=== PATIENT | female | born 1950 | race Asian ===

== ENCOUNTER 2020-01-03 12:54 | Observation (INO) | payer BC, MEDICARE, OTHER, SELFPAY ==
[2020-01-03 13:06] VITALS: BP 183/93; PULSE 99; RESP 18; TEMP 36.4; O2SAT 97; BMI 31.2
[2020-01-03 13:26] LABS: Add Manual Diff / Slide Review NO; Basophils Absolute Auto 100 /uL (0-100); Basophils Percent Auto 0.8 % (0-2); Eosinophils Absolute Auto 100 /uL (0-450); Eosinophils Percent Auto 0.8 % (2-4); Hematocrit 42.4 % (36-46); Hemoglobin 14.4 g/dL (12.0-16.0); Lymphocytes Absolute Auto 1600 /uL (1100-4500); Lymphocytes Percent Auto 12.4 % (25-40); Mean Corpuscular HGB Conc 33.9 % (30-36); Mean Corpuscular Hemoglobin 28.4 PG (26-34); Mean Corpuscular Volume 83.8 fL (80-100); Monocytes Absolute Auto 400 /uL (0-900); Neutrophils Absolute Auto 11000 /uL (1500-7000); Platelet Count 300 X10^3/uL (150-400); Red Blood Cell Count 5.06 X10^6/uL (4.0-5.2); Red Cell Distribution Width 13.8 % (11.6-14.8); White Blood Cell Count 13.3 X10^3/uL (4.5-11.0)
--- NOTE | 2020-01-03 13:31 | DI.CT.S_ITS ---
PROCEDURE: CT ABDOMEN PELVIS W CON INDICATIONS: R upper and lower Q pain w/vomiting, hx uterine mass TECHNIQUE: After the administration of intravenous contrast, 5 mm thick sections acquired from the diaphragm to the symphysis. 5 mm coronal and sagittal reformats were acquired. For radiation dose reduction, the following was used: automated exposure control, adjustment of mA and/or kV according to patient size. COMPARISON: None. FINDINGS: Image quality: Excellent. ABDOMEN: Lung bases: Lung bases are clear. Heart size is normal. Solid organs: Hepatic steatosis. Gallbladder negative. There is a 2 mm calculus which may be located within the gallbladder neck or proximal cystic duct however no definite other CT evidence of acute cholecystitis. This is seen on image 27/2 Biliary system is non dilated. Pancreas enhances normally. Spleen is normal in size and enhancement. No adrenal nodules. Kidneys demonstrate normal size and enhancement, without hydronephrosis Peritoneum and bowel: Dilated small bowel loops are noted, mostly within the left abdomen, and there are scattered air-fluid levels. An exact transition point is unclear. There are some nondistended loops of jejunum. The colon is decompressed. No free fluid or air. Nodes and vessels: No retroperitoneal or mesenteric adenopathy by size criteria. Aorta and inferior vena cava are normal in size. Miscellaneous: No ventral hernias. PELVIS: Genitourinary: The bladder is largely collapsed. Uterine may be least partially present although nonspecific and recommend correlation with surgical history Miscellaneous: No inguinal hernias or adenopathy. Bones: No suspicious bony lesions. No vertebral body compression fractures. IMPRESSION: Left-sided distended small bowel loops, with scattered air-fluid levels. This raises the possibility of infectious or inflammatory enteritis with adynamic ileus, versus developing small bowel obstruction. An exact transition point is not well seen. Please correlate clinically and if needed continued surveillance with abdominal series radiographs could be performed. Hepatic steatosis 2 mm calculus seen within the gallbladder neck however no other CT evidence of acute cholecystitis Dictated by: Bryant Conn M.D. on 01/03/2020 at 14:33 Approved by: Bryant Conn M.D. on 01/03/2020 at 14:47
[2020-01-03] MEDS: ONDANSETRON 4 MG/2 ML INJ IV (13:33)
[2020-01-03] MEDS: SODIUM CHLORIDE 0.9% 1,000 ML 1000 ML IV (13:33)
[2020-01-03 13:34] LABS: Prothrombin Time 12.1 SECONDS (10.1-12.7)
--- NOTE | 2020-01-03 13:35 | ED.ABDPAIN ---
HPI - Abdominal Pain <ASHLIE Tripathi - Last Filed: 01/03/20 17:14> General Chief Complaint: Abdominal Pain Stated Complaint: stomach pain, throwing up Time Seen by Provider: 01/03/20 13:14 Source: patient Mode of arrival: Ambulatory Limitations: no limitations History of Present Illness HPI narrative: 69yo female with history of AK and 2 stents, and a hysterectomy due to mass in uterus, presents to the emergency department for left upper and lower quadrant abdominal pain with dry heaving for the past 24 hours. She states the pain is cramping and dull aching. She has been dry heaving without a lot of vomiting. Patient reports feeling nauseated, has not eaten or drinking much over the past 24 hours. Patient denies any diarrhea, constipation, blood in stools, fevers, chills, chest pain, shortness of breath, dizziness, or other concerns. Patient denies any history of kidney stones or diverticulitis. Related Data Home Medications Medication Instructions Recorded Confirmed ezetimibe [Zetia] 10 mg PO DAILY 01/03/20 01/03/20 lisinopril 10 mg PO DAILY 01/03/20 01/03/20 metoprolol tartrate 50 mg PO DAILY 01/03/20 01/03/20 rosuvastatin [Crestor] 40 mg PO DAILY 01/03/20 01/03/20 Allergies Allergy/AdvReac Type Severity Reaction Status Date / Time No Known Drug Allergies Allergy Verified 01/03/20 13:06 Review of Systems <ASHLIE Tripathi - Last Filed: 01/03/20 17:14> Review of Systems Narrative: REVIEW OF SYSTEMS: GENERAL: Denies fever, chills, malaise, or wt. loss. HENT: No head trauma, sore throat, or dysphagia. EYES: No loss of vision, double vision, eye pain, or irritation. CARDIOVASCULAR: No chest pain, palpitations, or orthopnea. RESPIRATORY: No shortness of breath or cough. GASTROINTESTINAL: Complains of abdominal pain and dry heaving, see HPI GENITOURINARY: No flank pain, hesitancy, frequency, or dysuria. MUSCULOSKELETAL: No pain, weakness, or trauma. INTEGUMENTARY: No rash, lesions, or pruritus. NEURO: No headaches. PSYCH: No behavior or mood changes. Patient History <ASHLIE Tripathi - Last Filed: 01/03/20 17:14> Medical History Coronary artery disease (Acute) Dizziness (Acute) Elevated cholesterol (Acute) History of myocardial infarction in adulthood (Acute) History of smoking (Acute) Hypertension (Acute) Tinnitus (Acute) Surgical History History of hysterectomy (Acute) Hx of heart artery stent (Acute) Family History Brother Heart disease Social History household members: spouse Smoking Status: Former smoker alcohol intake: current Smoking Status: Never smoker alcohol intake frequency: holidays/special occasions only Substance Use Type: does not use Exam <ASHLIE Tripathi - Last Filed: 01/03/20 17:14> Initial Vital Signs Initial Vital Signs: Vital Signs Temperature 97.6 F 01/03/20 13:06 Pulse Rate 99 H 01/03/20 13:06 Respiratory Rate 18 01/03/20 13:06 Blood Pressure 183/93 H 01/03/20 13:06 Pulse Oximetry 97 01/03/20 13:06 PHYSICAL EXAMINATION: GENERAL: Well groomed, alert, and cooperative. Answers questions promptly and appropriately. Vital signs noted. HENT: Normocephalic, atraumatic. Hearing intact. Oral mucosa is pink and moist. EYES: Conjunctiva pink, sclera white, no periorbital swelling. CARDIOVASCULAR: S1 and S2 sounds normal. Regular rate and rhythm, no murmurs, clicks, or bruits. No pedal edema. RESPIRATORY: Normal respiratory rate, trachea midline, airway patent. No stridor, nasal flaring or accessory muscle use. Lungs are clear in all warner without wheeze, rhonchi, or crackles. GASTROINTESTINAL: Bowel sounds normoactive. Abdomen is soft and right upper and right lower quadrant tenderness. No organomegaly, no palpable masses. GENITALURINARY: No flank tenderness. MUSCULOSKELETAL: Normal gait and coordination. Equal tone and mass bilaterally. EXTREMITIES: CMS intact, no pedal edema. SKIN: Warm, dry, soft, appropriate color for ethnicity. No lesions, rashes, or wounds to visualized areas. NEURO: Alert and Oriented X 3. Good coordination. No ataxia, or sensory deficits, or cognitive issues. PSYCH: Appropriate affect and mood. <Jordy Jefferson DO - Last Filed: 01/03/20 17:31> Initial Vital Signs Initial Vital Signs: Vital Signs Temperature 97.6 F 01/03/20 13:06 Pulse Rate 99 H 01/03/20 13:06 Respiratory Rate 18 01/03/20 13:06 Blood Pressure 183/93 H 01/03/20 13:06 Pulse Oximetry 97 01/03/20 13:06 Course <Ale EstradaASHLIE - Last Filed: 01/03/20 17:14> Course Course Narrative: Patient given fluids and Zofran. 1503: Spoke with Dr. Vaughn regarding CT results, will review images. 1520: Dr. Vaughn at bedside to assess patient, accepts admission to observation. Orders Ordered: ED Orders 01/03/20 13:12 EKG-12 Lead Stat 01/03/20 13:15 Complete Blood Count AUTO DIFF Stat Comprehensive Metabolic Panel Stat Lipase Stat Partial Thromboplastin Time Stat Prothrombin Time INR Stat Troponin & CK Cardiac Panel Stat 01/03/20 13:31 CT abdomen pelvis w con Stat Ezetimibe (Zetia) 10 mg PO BEDTIME [facility] Enoxaparin Sodium (Lovenox) 40 mg SUBCUT DAILY [facility] Dextrose/Sodium Chloride (Dextrose 5%-0.45% Ns) 1,000 mls @ 125 mls/hr IV CONT SHORTY Last Admin: 01/03/20 16:50 Dose: 125 mls/hr Documented by: VILMA Ketorolac Tromethamine (Toradol) 30 mg IV Q8HR PRN PRN Reason: Pain, Moderate (4-6) Stop: 01/08/20 16:00 Last Admin: 01/03/20 16:50 Dose: 30 mg Documented by: VILMA Lisinopril (Zestril) 10 mg PO DAILY [facility] Metoprolol Tartrate (Lopressor) 50 mg PO DAILY [facility] Naloxone HCl (Narcan) 0.2 mg IV Q2MIN PRN PRN Reason: Opiate Reversal Ondansetron HCl (Zofran) 4 mg IV Q4HR PRN PRN Reason: Nausea And Vomiting Rosuvastatin Calcium (Crestor) 40 mg PO BEDTIME [facility] Discontinued Medications Sodium Chloride (Normal Saline 0.9%) 1,000 mls @ 1,000 mls/hr IV BOLUS ONE Stop: 01/03/20 14:31 Last Infusion: 01/03/20 15:30 Dose: 0 mls/hr Documented by: Admin: 01/03/20 13:33 Dose: 1,000 mls/hr Documented by: THANH Lactated Ringer's (Lactated Ringers) 1,000 mls @ 125 mls/hr IV CONT SHORTY Last Admin: 01/03/20 16:01 Dose: 125 mls/hr Documented by: ANTONIETA Ondansetron HCl (Zofran) 4 mg IV NOW ONE Stop: 01/03/20 13:13 Last Admin: 01/03/20 13:33 Dose: 4 mg Documented by: THANH Consultations Consultation #1: Patient staffed with Dr. Jefferson, discussed symptoms, tests, test results, and plan of care. Vital Signs Vital signs: Vital Signs - 8 hr 01/03/20 13:06 Temperature 97.6 F Pulse Rate 99 H Respiratory Rate 18 Blood Pressure 183/93 H Pulse Oximetry 97 <Jordy Jefferson, - Last Filed: 01/03/20 17:31> Orders Ordered: ED Orders 01/03/20 13:12 EKG-12 Lead Stat 01/03/20 13:15 Complete Blood Count AUTO DIFF Stat Comprehensive Metabolic Panel Stat Lipase Stat Partial Thromboplastin Time Stat Prothrombin Time INR Stat Troponin & CK Cardiac Panel Stat 01/03/20 13:31 CT abdomen pelvis w con Stat Ezetimibe (Zetia) 10 mg PO BEDTIME [facility] Enoxaparin Sodium (Lovenox) 40 mg SUBCUT DAILY [facility] Dextrose/Sodium Chloride (Dextrose 5%-0.45% Ns) 1,000 mls @ 125 mls/hr IV CONT SHORTY Last Admin: 01/03/20 16:50 Dose: 125 mls/hr Documented by: VILMA Ketorolac Tromethamine (Toradol) 30 mg IV Q8HR PRN PRN Reason: Pain, Moderate (4-6) Stop: 01/08/20 16:00 Last Admin: 01/03/20 16:50 Dose: 30 mg Documented by: VILMA Lisinopril (Zestril) 10 mg PO DAILY [facility] Metoprolol Tartrate (Lopressor) 50 mg PO DAILY [facility] Naloxone HCl (Narcan) 0.2 mg IV Q2MIN PRN PRN Reason: Opiate Reversal Ondansetron HCl (Zofran) 4 mg IV Q4HR PRN PRN Reason: Nausea And Vomiting Rosuvastatin Calcium (Crestor) 40 mg PO BEDTIME [facility] Discontinued Medications Sodium Chloride (Normal Saline 0.9%) 1,000 mls @ 1,000 mls/hr IV BOLUS ONE Stop: 01/03/20 14:31 Last Infusion: 01/03/20 15:30 Dose: 0 mls/hr Documented by: Admin: 01/03/20 13:33 Dose: 1,000 mls/hr Documented by: THANH Lactated Ringer's (Lactated Ringers) 1,000 mls @ 125 mls/hr IV CONT SHORTY Last Admin: 01/03/20 16:01 Dose: 125 mls/hr Documented by: ANTONIETA Ondansetron HCl (Zofran) 4 mg IV NOW ONE Stop: 01/03/20 13:13 Last Admin: 01/03/20 13:33 Dose: 4 mg Documented by: THANH Vital Signs Vital signs: Vital Signs - 8 hr 01/03/20 13:06 Temperature 97.6 F Pulse Rate 99 H Respiratory Rate 18 Blood Pressure 183/93 H Pulse Oximetry 97 MDM - Abdominal Pain <ASHLIE Tripathi - Last Filed: 01/03/20 17:14> Medical Records Attestation: I reviewed the patient's medical records. Lab Data Attestation: I reviewed the patient's lab results. Result diagrams: 01/03/20 13:15 01/03/20 13:15 Labs: Lab Results 01/03/20 01/03/20 01/03/20 Range/Units 13:15 13:15 13:15 WBC 13.3 H (4.5-11.0) X10^3/uL RBC 5.06 (4.0-5.2) X10^6/uL Hgb 14.4 (12.0-16.0) g/dL Hct 42.4 (36-46) % MCV 83.8 (80-100) fL MCH 28.4 (26-34) PG MCHC 33.9 (30-36) % RDW 13.8 (11.6-14.8) % Plt Count 300 (150-400) X10^3/uL Neut % (Auto) 83.0 H (50-75) % Lymph % (Auto) 12.4 L (25-40) % Sebastian % (Auto) 3.0 (3-14) % Eos % (Auto) 0.8 L (2-4) % Baso % (Auto) 0.8 (0-2) % Neut # (Auto) 54103 H (0670-9154) /uL Lymph # (Auto) 1600 (1363-7010) /uL Sebastian # (Auto) 400 (0-900) /uL Eos # (Auto) 100 (0-450) /uL Baso # (Auto) 100 (0-100) /uL PT 12.1 (10.1-12.7) SECONDS INR 1.0 (0.9-1.3) APTT 36 (26.4-36.2) SECONDS Sodium 136 L (137-145) mmol/L Potassium 4.1 (3.4-5.1) mmol/L Chloride 101 (98-107) mmol/L Carbon Dioxide 24 (22-32) mmol/L BUN 17 (7-17) mg/dL Creatinine 0.55 (0.52-1.04) mg/dL Estimated GFR > 60.0 (>60) mL/min BUN/Creatinine Ratio 30.9 H (6-22) Glucose 178 H (80-110) mg/dL Calcium 9.9 (8.4-10.2) mg/dL Total Bilirubin 0.5 (0.2-1.3) mg/dL AST 28 (14-36) IU/L ALT 22 (<35) IU/L Alkaline Phosphatase 85 (38-126) U/L Total Creatine Kinase (30-135) U/L CK-MB (CK-2) CK-MB (CK-2) Rel Index Troponin I (0.01-0.034) ng/mL Total Protein 8.6 H (6.3-8.2) g/dL Albumin 5.0 (3.5-5.0) g/dL Globulin 3.6 (1.7-4.1) g/dL Albumin/Globulin Ratio 1.4 (1.0-2.8) Lipase 37 (23-300) U/L /16/ Range/Units 13:15 WBC (4.5-11.0) X10^3/uL RBC (4.0-5.2) X10^6/uL Hgb (12.0-16.0) g/dL Hct (36-46) % MCV (80-100) fL MCH (26-34) PG MCHC (30-36) % RDW (11.6-14.8) % Plt Count (150-400) X10^3/uL Neut % (Auto) (50-75) % Lymph % (Auto) (25-40) % Sebastian % (Auto) (3-14) % Eos % (Auto) (2-4) % Baso % (Auto) (0-2) % Neut # (Auto) (1040-3349) /uL Lymph # (Auto) (7121-5400) /uL Sebastian # (Auto) (0-900) /uL Eos # (Auto) (0-450) /uL Baso # (Auto) (0-100) /uL PT (10.1-12.7) SECONDS INR (0.9-1.3) APTT (26.4-36.2) SECONDS Sodium (137-145) mmol/L Potassium (3.4-5.1) mmol/L Chloride (98-107) mmol/L Carbon Dioxide (22-32) mmol/L BUN (7-17) mg/dL Creatinine (0.52-1.04) mg/dL Estimated GFR (>60) mL/min BUN/Creatinine Ratio (6-22) Glucose (80-110) mg/dL Calcium (8.4-10.2) mg/dL Total Bilirubin (0.2-1.3) mg/dL AST (14-36) IU/L ALT (<35) IU/L Alkaline Phosphatase (38-126) U/L Total Creatine Kinase 76 (30-135) U/L CK-MB (CK-2) TNP CK-MB (CK-2) Rel Index TNP Troponin I < 0.012 (0.01-0.034) ng/mL Total Protein (6.3-8.2) g/dL Albumin (3.5-5.0) g/dL Globulin (1.7-4.1) g/dL Albumin/Globulin Ratio (1.0-2.8) Lipase (23-300) U/L Point of care testing: Urine Dip Bedside Urine Glucose Negative Bedside Urine Bilirubin - Negative Bedside Urine Ketone ++ 40 Urine Specific [place] 1.030 Bedside Urine Occult Blood - Negative Bedside Urine pH 6.0 Bedside Urine Protein - Negative Bedside Urine Urobilinogen - Negative Bedside Urine Nitrite - Negative Bedside Urine Leukocytes - Negative Esterase Imaging Data CT scan - abdomen/pelvis: Radiologist's Impression: [address] [address] [address] Scan Report Signed Patient: Juan Cardenas IMR#: [id number] : 3Acct:[id number] Age/Sex: 69 / FDate of Service: 01/03/20 Loc: ED Accession Number: [id number] Procedure: CT abdomen pelvis w con Ordering Provider: Ale Estrada PROCEDURE: CT ABDOMEN PELVIS W CON INDICATIONS: R upper and lower Q pain w/vomiting, hx uterine mass TECHNIQUE: After the administration of intravenous contrast, 5 mm thick sections acquired from the diaphragm to the symphysis. 5 mm coronal and sagittal reformats were acquired. For radiation dose reduction, the following was used: automated exposure control, adjustment of mA and/or kV according to patient size. COMPARISON: None. FINDINGS: Image quality: Excellent. ABDOMEN: Lung bases: Lung bases are clear. Heart size is normal. Solid organs: Hepatic steatosis. Gallbladder negative. There is a 2 mm calculus which may be located within the gallbladder neck or proximal cystic duct however no definite other CT evidence of acute cholecystitis. This is seen on image 27/2 Biliary system is non dilated. Pancreas enhances normally. Spleen is normal in size and enhancement. No adrenal nodules. Kidneys demonstrate normal size and enhancement, without hydronephrosis Peritoneum and bowel: Dilated small bowel loops are noted, mostly within the left abdomen, and there are scattered air-fluid levels. An exact transition point is unclear. There are some nondistended loops of jejunum. The colon is decompressed. No free fluid or air. Nodes and vessels: No retroperitoneal or mesenteric adenopathy by size criteria. Aorta and inferior vena cava are normal in size. Miscellaneous: No ventral hernias. PELVIS: Genitourinary: The bladder is largely collapsed. Uterine may be least partially present although nonspecific and recommend correlation with surgical history Miscellaneous: No inguinal hernias or adenopathy. Bones: No suspicious bony lesions. No vertebral body compression fractures. IMPRESSION: Left-sided distended small bowel loops, with scattered air-fluid levels. This raises the possibility of infectious or inflammatory enteritis with adynamic ileus, versus developing small bowel obstruction. An exact transition point is not well seen. Please correlate clinically and if needed continued surveillance with abdominal series radiographs could be performed. Hepatic steatosis 2 mm calculus seen within the gallbladder neck however no other CT evidence of acute cholecystitis Dictated by: Bryant Conn M.D. on 01/03/2020 at 14:33 Approved by: Bryant Conn M.D. on 01/03/2020 at 14:47 ECG Data Interpretation: Sinus rhythm, rate 95, OK interval 192, QTC 475. No ST elevation or ST depression. No ectopy. T-wave inversion noted to lead 3. No prior EKGs for comparison. EKG also viewed by Dr. Jefferson per vanesa. MDM Narrative Medical decision making narrative: 69-year-old female presents emergency department for dry heaving and left quadrant abdominal pain for the past 24 hours. Differential includes enteritis versus infectious enteritis versus small-bowel obstruction given CT results, tenderness, and symptoms. Patient does have an elevated white blood cell count of 13.3. Less concern for sepsis due to lack of fever, tachycardia, and lactic acid is within normal limits. Patient is hemodynamically stable and awake alert. Additionally, CT shows stone within gallbladder neck without signs of cholecystitis, less likely because of pain due to lack of right upper quadrant pain. Surgery was consulted who evaluated patient and admitted for observation. Patient agreed to plan of care verbalized understanding. <Jordy Jefferson, DO - Last Filed: 01/03/20 17:31> Lab Data Labs: Lab Results 01/03/20 01/03/20 01/03/20 Range/Units 13:15 13:15 13:15 WBC 13.3 H (4.5-11.0) X10^3/uL RBC 5.06 (4.0-5.2) X10^6/uL Hgb 14.4 (12.0-16.0) g/dL Hct 42.4 (36-46) % MCV 83.8 (80-100) fL MCH 28.4 (26-34) PG MCHC 33.9 (30-36) % RDW 13.8 (11.6-14.8) % Plt Count 300 (150-400) X10^3/uL Neut % (Auto) 83.0 H (50-75) % Lymph % (Auto) 12.4 L (25-40) % Sebastian % (Auto) 3.0 (3-14) % Eos % (Auto) 0.8 L (2-4) % Baso % (Auto) 0.8 (0-2) % Neut # (Auto) 89367 H (0844-1014) /uL Lymph # (Auto) 1600 (5893-4066) /uL Sebastian # (Auto) 400 (0-900) /uL Eos # (Auto) 100 (0-450) /uL Baso # (Auto) 100 (0-100) /uL PT 12.1 (10.1-12.7) SECONDS INR 1.0 (0.9-1.3) APTT 36 (26.4-36.2) SECONDS Sodium 136 L (137-145) mmol/L Potassium 4.1 (3.4-5.1) mmol/L Chloride 101 (98-107) mmol/L Carbon Dioxide 24 (22-32) mmol/L BUN 17 (7-17) mg/dL Creatinine 0.55 (0.52-1.04) mg/dL Estimated GFR > 60.0 (>60) mL/min BUN/Creatinine Ratio 30.9 H (6-22) Glucose 178 H (80-110) mg/dL Calcium 9.9 (8.4-10.2) mg/dL Total Bilirubin 0.5 (0.2-1.3) mg/dL AST 28 (14-36) IU/L ALT 22 (<35) IU/L Alkaline Phosphatase 85 (38-126) U/L Total Creatine Kinase (30-135) U/L CK-MB (CK-2) CK-MB (CK-2) Rel Index Troponin I (0.01-0.034) ng/mL Total Protein 8.6 H (6.3-8.2) g/dL Albumin 5.0 (3.5-5.0) g/dL Globulin 3.6 (1.7-4.1) g/dL Albumin/Globulin Ratio 1.4 (1.0-2.8) Lipase 37 (23-300) U/L /16/ Range/Units 13:15 WBC (4.5-11.0) X10^3/uL RBC (4.0-5.2) X10^6/uL Hgb (12.0-16.0) g/dL Hct (36-46) % MCV (80-100) fL MCH (26-34) PG MCHC (30-36) % RDW (11.6-14.8) % Plt Count (150-400) X10^3/uL Neut % (Auto) (50-75) % Lymph % (Auto) (25-40) % Sebastian % (Auto) (3-14) % Eos % (Auto) (2-4) % Baso % (Auto) (0-2) % Neut # (Auto) (8722-7504) /uL Lymph # (Auto) (4207-4187) /uL Sebastian # (Auto) (0-900) /uL Eos # (Auto) (0-450) /uL Baso # (Auto) (0-100) /uL PT (10.1-12.7) SECONDS INR (0.9-1.3) APTT (26.4-36.2) SECONDS Sodium (137-145) mmol/L Potassium (3.4-5.1) mmol/L Chloride (98-107) mmol/L Carbon Dioxide (22-32) mmol/L BUN (7-17) mg/dL Creatinine (0.52-1.04) mg/dL Estimated GFR (>60) mL/min BUN/Creatinine Ratio (6-22) Glucose (80-110) mg/dL Calcium (8.4-10.2) mg/dL Total Bilirubin (0.2-1.3) mg/dL AST (14-36) IU/L ALT (<35) IU/L Alkaline Phosphatase (38-126) U/L Total Creatine Kinase 76 (30-135) U/L CK-MB (CK-2) TNP CK-MB (CK-2) Rel Index TNP Troponin I < 0.012 (0.01-0.034) ng/mL Total Protein (6.3-8.2) g/dL Albumin (3.5-5.0) g/dL Globulin (1.7-4.1) g/dL Albumin/Globulin Ratio (1.0-2.8) Lipase (23-300) U/L Point of care testing: Urine Dip Bedside Urine Glucose Negative Bedside Urine Bilirubin - Negative Bedside Urine Ketone ++ 40 Urine Specific [place] 1.030 Bedside Urine Occult Blood - Negative Bedside Urine pH 6.0 Bedside Urine Protein - Negative Bedside Urine Urobilinogen - Negative Bedside Urine Nitrite - Negative Bedside Urine Leukocytes - Negative Esterase Discharge Plan Departure Patient Disposition: Admitted as Observation Clinical Impression: Dilated bowel Abdominal pain Qualifiers: Abdominal location: left lower quadrant Qualified Code(s): R10.32 - Left lower quadrant pain Cholelithiasis Qualifiers: Cholelithiasis location: gallbladder Cholecystitis presence: without cholecystitis Biliary obstruction: without biliary obstruction Qualified Code(s): K80.20 - Calculus of gallbladder without cholecystitis without obstruction Discharge Date/Time: 01/03/20 16:30 Referrals: Antonio Crawley MD [Primary Care Provider] - Admit Date/Time: 01/03/20 15:29 Admit Provider: Zelalem Vaughn <Jordy Jefferson DO - Last Filed: 01/03/20 17:31> Cosign ED Attending Cosignature Attestation: Dr Jefferson Co-Sign Statement: I was available for consultation during this patient's emergency department visit. This chart is signed by myself for administrative purposes only. I did not have direct contact with this patient during this visit. They were seen independently by the APC.
[2020-01-03 13:36] LABS: PTT Partial Thromboplastin Tim 36 SECONDS (26.4-36.2)
[2020-01-03 13:38] LABS: Alanine Aminotransferase 22 IU/L (<35); Albumin Globulin Ratio 1.4 (1.0-2.8); Alkaline Phosphatase 85 U/L (38-126); Aspartate Aminotransferase 28 IU/L (14-36); BUN Creatinine Ratio 30.9 (6-22); Bilirubin Total 0.5 mg/dL (0.2-1.3); Blood Urea Nitrogen 17 mg/dL (7-17); Calcium 9.9 mg/dL (8.4-10.2); Carbon Dioxide 24 mmol/L (22-32); Chloride 101 mmol/L (98-107); Estimated Glomerular Filt Rate > 60.0 mL/min (>60); Globulin 3.6 g/dL (1.7-4.1); Glucose 178 mg/dL (80-110); HEMOLYSIS < 15 (0-50); Lipase 37 U/L (23-300); Potassium 4.1 mmol/L (3.4-5.1); Sodium 136 mmol/L (137-145); Total Protein 8.6 g/dL (6.3-8.2)
[2020-01-03 13:50] LABS: Creatine Kinase 76 U/L (30-135)
[2020-01-03 14:03] LABS: Troponin I < 0.012 ng/mL (0.01-0.034)
--- NOTE | 2020-01-03 15:32 | P.HP_ITS ---
History of Present Illness History of Present Illness Date Patient Seen: 01/03/20 Time Patient Seen: 15:32 Chief complaint: stomach pain, throwing up Narrative: The patient is a woman who developed pain across her upper abdomen yesterday afternoon. It was accompanied by persistent nausea and vomiting all night long. She had a normal bowel movement this morning. She has had problems with eating and with her abdomen in the past but nothing this severe. She feels bloated a fair amount of time. She feels the best early bloated right now. Her pain is mostly at this time in the left abdomen. She has had a hysterectomy in the past but no other abdominal operations. That was done for a benign tumor. Patient History Medical History Coronary artery disease (Acute) Dizziness (Acute) Elevated cholesterol (Acute) History of myocardial infarction in adulthood (Acute) History of smoking (Acute) Hypertension (Acute) Tinnitus (Acute) Surgical History History of hysterectomy (Acute) Hx of heart artery stent (Acute) Family & Social History Family History Brother Heart disease Safety & Behavioral: Feels Safe in Current Yes Environment Been Physically Hurt or No Threatened By a Person Tobacco & Substance use: Smoking Status Never smoker alcohol intake frequency holiday/special occasion Substance Use Type does not use Meds Home Medications and Allergies Home Medications Medication Instructions Recorded Confirmed Type ezetimibe [Zetia] 10 mg PO DAILY 01/03/20 01/03/20 History lisinopril 10 mg PO DAILY 01/03/20 01/03/20 History metoprolol tartrate 50 mg PO DAILY 01/03/20 01/03/20 History rosuvastatin [Crestor] 40 mg PO DAILY 01/03/20 01/03/20 History Allergies Allergy/AdvReac Type Severity Reaction Status Date / Time No Known Drug Allergies Allergy Verified 01/03/20 13:06 Review of Systems Review of Systems Narrative: Patient denies double vision though her vision is changing as she is farsighted but is having trouble reading the computer screen at times and books. No headaches or earaches. She does have tinnitus. It is chronic and no one knows why. Patient never took a lot of aspirin though she is on a daily dose of 81 mg. The patient has no tooth aches or trouble swallowing. No cough cold or asthma. Patient has seasonal allergies. No allergies to medication. No chest pain though that was the symptoms she had when she had her heart attack. Does have hypertension is on medication for it. Patient has no black or bloody bowel movements. No blood in her vomit. Mostly bitter tasting fluid. Patient denies kidney stones or blood in her urine. No dysuria. Patient denies seizures or blackouts that she does get dizzy. It is on standing but it can also be just random she does not have vertigo however. Patient denies numbness in her fingers or hands. Patient has no problem with the pancreas or thyroid that she is aware of. No unusual bruising or bleeding at this time though she has had nose bleeds on the left side in the past. She does not have any form of psychosis. No serious mental health issues at this time. No new skin lesions or sores. Exam Vital Signs (past 8 hours): - 01/03/20 13:06 Temperature 97.6 F Pulse Rate 99 H Respiratory Rate 18 Blood Pressure 183/93 H Pulse Oximetry 97 Oxygen Delivery Method Room Air Narrative Exam Narrative: Cooperative pleasant woman. She is a bit overweight with a BMI of 31. Eyes are nonicteric. Pupils equal round reactive to light. Conjunctivae are pink. Ears without lesion. Nasal septum is midline without polyps. Oral mucosa is pink moist no open lesions. Neck is supple. There are no nodes in the neck or supraclavicular areas. Trachea is midline mobile. Thyroid is not enlarged. There are no palpable tender areas or masses in the neck or thyroid. Her lungs are clear to auscultation without rales or rhonchi. Equal percussion. Heart regular rate and rhythm without murmur gallop. No bruit in the neck. Abdomen is protuberant but soft. There is minimal tenderness in the left lower abdomen. No guarding. No hernias appreciated. Liver and spleen are not palpably enlarged. She has a vertical scar from the umbilicus down. It is just to the left of midline. There is no tenderness in the right upper quadrant. Extremities without cyanosis clubbing edema or deformity. Patient is alert and oriented x3. Speech rate and content are appropriate. Affect is appropriate. Visualized areas of skin without open lesion. Skin is supple with 2+ turgor. Not jaundiced. Objective Imaging CT scan - abdomen: My impression: The patient has a gallstone. There is no thickening of the gallbladder wall. There is some dilated loops of small bowel in the left mid abdomen. Proximal and distal a collapsed. Colon is not dilated. No hernias of the ventral wall seen. Labs Result Diagrams: 01/03/20 13:15 01/03/20 13:15 Labs: Laboratory Results - last 24 hr 01/03/20 01/03/20 01/03/20 13:15 13:15 13:15 WBC 13.3 H RBC 5.06 Hgb 14.4 Hct 42.4 MCV 83.8 MCH 28.4 MCHC 33.9 RDW 13.8 Plt Count 300 Neut % (Auto) 83.0 H Lymph % (Auto) 12.4 L [place] % (Auto) 3.0 Eos % (Auto) 0.8 L Baso % (Auto) 0.8 Neut # (Auto) 04926 H Lymph # (Auto) 1600 [place] # (Auto) 400 Eos # (Auto) 100 Baso # (Auto) 100 PT 12.1 INR 1.0 APTT 36 Sodium 136 L Potassium 4.1 Chloride 101 Carbon Dioxide 24 BUN 17 Creatinine 0.55 Estimated GFR > 60.0 BUN/Creatinine Ratio 30.9 H Glucose 178 H Calcium 9.9 Total Bilirubin 0.5 AST 28 ALT 22 Alkaline Phosphatase 85 Total Creatine Kinase CK-MB (CK-2) CK-MB (CK-2) Rel Index Troponin I Total Protein 8.6 H Albumin 5.0 Globulin 3.6 Albumin/Globulin Ratio 1.4 Lipase 37 01/03/20 13:15 WBC RBC Hgb Hct MCV MCH MCHC RDW Plt Count Neut % (Auto) Lymph % (Auto) [place] % (Auto) Eos % (Auto) Baso % (Auto) Neut # (Auto) Lymph # (Auto) [place] # (Auto) Eos # (Auto) Baso # (Auto) PT INR APTT Sodium Potassium Chloride Carbon Dioxide BUN Creatinine Estimated GFR BUN/Creatinine Ratio Glucose Calcium Total Bilirubin AST ALT Alkaline Phosphatase Total Creatine Kinase 76 CK-MB (CK-2) TNP CK-MB (CK-2) Rel Index TNP Troponin I < 0.012 Total Protein Albumin Globulin Albumin/Globulin Ratio Lipase Assessment & Plan Assessment and plan (1) Dizziness: Problem details: Will simply observe this problem. She may need additional help getting out of bed and going to the bathroom or walking. Status: Acute (2) Tinnitus: Problem details: Not sure the cause of her tinnitus. Will leave that evaluation to her family physician. She does not appear to have the risk factor of nonsteroidal anti- inflammatory agents as her source of the problem. Status: Acute (3) Coronary artery disease: Status: Acute (4) Hypertension: Problem details: The patient is on lisinopril for her blood pressure. We will continue that. She all to take it takes metoprolol which will also be continued which is probably both a combination of cardiac medication and blood pressure medication Status: Acute (5) Elevated cholesterol: Problem details: We will continue her Crestor Status: Acute (6) Abdominal pain: Problem details: Cause of her abdominal pain may be from a partial obstruction. She may also have a viral illness given the lack of significant dilatation of her small bowel just distal to her stomach. A viral illness may well be the source of her na usea and vomiting. We will keep her NPO and give her IV fluids and check her electrolytes. Status: Acute (7) Nausea & vomiting: Problem details: Will give her Zofran for nausea. It is certainly helped her she said in the emergency room. Will keep her NPO as well. I do not believe she needs an NG tu be at this time though that may be necessary ultimately. Status: Acute Assessment & Plan narrative: Continue anti nausea meds and monitor nausea and vomiting and output. Rehydrate patient. With persistent nausea and vomiting through the night she is probably a little bit dehydrated.
[2020-01-03] MEDS: LACTATED RINGERS 1,000 ML 125 ML IV (16:01)
[2020-01-03 16:30] VITALS: BP 145/84; PULSE 105; RESP 20; TEMP 36.3; O2SAT 98
[2020-01-03 16:35] VITALS: BP 125/71; PULSE 85; O2SAT 97; BMI 31.2
[2020-01-03] MEDS: DEXTROSE 5%-0.45% NS 1,000 ML 125 ML IV (16:50)
[2020-01-03] MEDS: KETOROLAC 30 MG/ML VIAL IV (16:50)
[2020-01-03 19:59] VITALS: BP 123/63; PULSE 88; RESP 18; TEMP 36; O2SAT 98
[2020-01-03 20:34] VITALS: O2SAT 97
[2020-01-03] MEDS: ENOXAPARIN 40 MG/0.4 ML SYRINGE SUBCUT (21:44)
[2020-01-03] MEDS: EZETIMIBE 10 MG TABLET PO (21:45)
[2020-01-03] MEDS: ROSUVASTATIN 10 MG TABLET 40 MG PO (21:45)
[2020-01-03 23:35] VITALS: BP 115/67; PULSE 84; RESP 18; TEMP 36.5; O2SAT 98
--- NOTE | 2020-01-03 23:36 | PC.NURSE ---
Admit notes: Juan brought from ER to rm 209 via wheelchair, able to transfer self to bed. Ox3, spouse Slim with her, later went home to [place] but said I will come back later to stay the night with her. Pt reports intermittent nausea & later tonight complained of gastric reflux, stated it goes away and then comes back. Medicated with Zofran in E.D., medicated with Toradol for pain. VS stable. Pt oriented to call button & hospital room, instructed to call if she needs OOB. Fall precautions in place.
--- NOTE | 2020-01-03 23:44 | PC.NURSE ---
Patient is alert and oriented. Breath sounds CTA with RA sat of 98%. HRR. Denies nausea. BT hypoactive; denies flatus. States abdominal pain is less intense, described as crampy and comes in waves. Pain severity is currently 4/10 and states it is tolerable. Able to turn self in bed. Hx of vertigo so is assisted to bathroom as needed but is steady on feet. Wearing bilateral calf SCD's. Fall risk score is moderate; bed alarm is activated.
[2020-01-04] VITALS (12 sets, daily range): BP systolic 111–135; BP diastolic 64–76; PULSE 81–89; RESP 18; TEMP 36–36.6; O2SAT 96–99
[2020-01-04] MEDS: DEXTROSE 5%-0.45% NS 1,000 ML 125 ML IV ×2 (00:34→08:38)
[2020-01-04 06:52] LABS: Add Manual Diff / Slide Review NO; Basophils Absolute Auto 100 /uL (0-100); Basophils Percent Auto 0.6 % (0-2); Eosinophils Absolute Auto 300 /uL (0-450); Eosinophils Percent Auto 3.3 % (2-4); Hemoglobin 12.1 g/dL (12.0-16.0); Lymphocytes Absolute Auto 1600 /uL (1100-4500); Lymphocytes Percent Auto 17.4 % (25-40); Mean Corpuscular HGB Conc 33.7 % (30-36); Mean Corpuscular Hemoglobin 28.7 PG (26-34); Monocytes Absolute Auto 600 /uL (0-900); Monocytes Percent Auto 5.9 % (3-14); Neutrophils Absolute Auto 6900 /uL (1500-7000); Neutrophils Percent Auto 72.8 % (50-75); Platelet Count 236 X10^3/uL (150-400); Red Blood Cell Count 4.23 X10^6/uL (4.0-5.2); Red Cell Distribution Width 13.8 % (11.6-14.8); White Blood Cell Count 9.5 X10^3/uL (4.5-11.0)
[2020-01-04 06:59] LABS: BUN Creatinine Ratio 17.2 (6-22); Blood Urea Nitrogen 10 mg/dL (7-17); Calcium 8.6 mg/dL (8.4-10.2); Carbon Dioxide 26 mmol/L (22-32); Chloride 105 mmol/L (98-107); Estimated Glomerular Filt Rate > 60.0 mL/min (>60); Glucose 138 mg/dL (80-110); HEMOLYSIS < 15 (0-50); Potassium 3.4 mmol/L (3.4-5.1); Sodium 138 mmol/L (137-145)
--- NOTE | 2020-01-04 07:04 | DI.RAD.S_ITS ---
PROCEDURE: FL SMALL BOWEL FOLLOW THROUGH INDICATIONS: sbo. diagnotstic/therapeutic COMPARISON: [facility], CT, CT ABDOMEN PELVIS W CON, 01/03/2020, 14:09. 480 cc of Gastrografin given. FINDINGS: KUB: Preprocedural scout sniper film demonstrates mildly prominent loops of small bowel in the left abdomen. Curvilinear calcifications or metallic fragments are again seen. No suspicious bony abnormalities. Small bowel: The stomach is not significantly distended. There is normal transit time of barium through the small bowel with contrast reaching the cecum at 45 minutes. Loops of small bowel the left abdomen are mildly prominent. No mucosal thickening identified. No obvious strictures, intraluminal masses, or extrinsic mass effects are noted. The terminal ileum is identified, and is normal in morphology. IMPRESSION: Mildly prominent loops of small bowel in the left abdomen. However, there is normal transit of enteric contrast through the small bowel which reaches the cecum at 45 minutes. The findings point away from a significant small bowel obstruction or adynamic ileus. Dictated by: Lenny Farfan M.D. on 01/04/2020 at 10:46 Approved by: Lenny Farfan M.D. on 01/04/2020 at 10:51
--- NOTE | 2020-01-04 07:34 | PM.PN.1 ---
Subjective Subjective Date Patient Seen: 01/04/20 Time Patient Seen: 07:00 Interval history: Patient feels better today but still having some soreness throughout her abdomen. No vomiting. No cough or chest pain. No black or bloody bowel movement Exam Vital Signs (past 8 hours): - 01/03/20 23:35 01/04/20 04:03 Temperature 97.7 F 97.6 F Pulse Rate 84 86 Respiratory Rate 18 18 Blood Pressure 115/67 123/71 Pulse Oximetry 98 98 Oxygen Delivery Method Room Air Oxygen Flow Rate 0 Narrative Exam Narrative: Cooperative no apparent distress. Lungs are clear to auscultation with good air movement. Equal percussion. Heart regular rate and rhythm without murmur gallop. Abdomen active bowel sounds. Abdomen is a little distended soft. No guarding. No hernias. Objective Labs Result Diagrams: 01/04/20 06:41 01/04/20 06:41 Labs: Laboratory Results - last 24 hr 01/03/20 01/03/20 01/03/20 13:15 13:15 13:15 WBC 13.3 H RBC 5.06 Hgb 14.4 Hct 42.4 MCV 83.8 MCH 28.4 MCHC 33.9 RDW 13.8 Plt Count 300 Neut % (Auto) 83.0 H Lymph % (Auto) 12.4 L [place] % (Auto) 3.0 Eos % (Auto) 0.8 L Baso % (Auto) 0.8 Neut # (Auto) 44358 H Lymph # (Auto) 1600 [place] # (Auto) 400 Eos # (Auto) 100 Baso # (Auto) 100 PT 12.1 INR 1.0 APTT 36 Sodium 136 L Potassium 4.1 Chloride 101 Carbon Dioxide 24 BUN 17 Creatinine 0.55 Estimated GFR > 60.0 BUN/Creatinine Ratio 30.9 H Glucose 178 H Calcium 9.9 Total Bilirubin 0.5 AST 28 ALT 22 Alkaline Phosphatase 85 Total Creatine Kinase CK-MB (CK-2) CK-MB (CK-2) Rel Index Troponin I Total Protein 8.6 H Albumin 5.0 Globulin 3.6 Albumin/Globulin Ratio 1.4 Lipase 37 01/03/20 01/04/20 01/04/20 13:15 06:41 06:41 WBC 9.5 RBC 4.23 Hgb 12.1 Hct 36.0 MCV 85.0 MCH 28.7 MCHC 33.7 RDW 13.8 Plt Count 236 Neut % (Auto) 72.8 Lymph % (Auto) 17.4 L [place] % (Auto) 5.9 Eos % (Auto) 3.3 Baso % (Auto) 0.6 Neut # (Auto) 6900 Lymph # (Auto) 1600 [place] # (Auto) 600 Eos # (Auto) 300 Baso # (Auto) 100 PT INR APTT Sodium 138 Potassium 3.4 Chloride 105 Carbon Dioxide 26 BUN 10 Creatinine 0.58 Estimated GFR > 60.0 BUN/Creatinine Ratio 17.2 Glucose 138 H Calcium 8.6 Total Bilirubin AST ALT Alkaline Phosphatase Total Creatine Kinase 76 CK-MB (CK-2) TNP CK-MB (CK-2) Rel Index TNP Troponin I < 0.012 Total Protein Albumin Globulin Albumin/Globulin Ratio Lipase Assessment & Plan Assessment & Plan narrative: Patient's symptoms are persisting. Will perform a small-bowel follow-through to see if this is a partially complete obstruction and possibly open it up. Continue her oral medications. These are medications for her heart hypertension elevated cholesterol Quality VTE Deep Vein Thrombosis/Pulmonary Embolism Present on Admission: No
[2020-01-04] MEDS: METOPROLOL IR 50 MG TABLET PO (08:38)
[2020-01-04] MEDS: lisinopriL 10 MG TABLET PO (08:38)
[2020-01-04] MEDS: ENOXAPARIN 40 MG/0.4 ML SYRINGE SUBCUT (08:38)
[2020-01-04] MEDS: PROCHLORPERAZINE 10 MG/2 ML VIAL 5 MG IV (08:48)
--- NOTE | 2020-01-04 10:18 | PC.NURSE ---
Pt in radiology dept for SBFT. Left via w/c Spouse waiting in room.
--- NOTE | 2020-01-04 11:42 | PC.NURSE ---
Pt back to room from Radiology SBFT. Has been to the bathroom with loose stools 4l times already and is currently back in the bathroom having another bm. Pt denies pain, nausea, or shortness of breath. IVF infusing as ordered. Pt agrees to call for assistance as needed..
--- NOTE | 2020-01-04 15:41 | CM.DANOTE ---
Patient is a 69 year old female who was admitted on 01/03/20 for possible partial SBO. Pt has BX FED and MCR for insurance and her PCP is Dr. Antonio Crawley. EMR was reviewed. Per Surgeon, pt was NPO and IV-fluids but having ongoing symptoms and therefore to have small bowel follow through today. Per RN, pt now back from small bowel follow through but has had multiple bowel movements and in bathroom currently. SW attempted bedside assessment but pt in bathroom again for a while and spouse not bedside still at this time. Patient lives at home with her spouse in [place] and is independent at baseline. Plan: SW to follow for attempting bedside assessment again and following for pt's diet to have eventual advancement towards determining if pt safe for d/c home with spouse when stable. MIGUEL Holland Discharge Planning/Care Management CM Discharge Assessment Start: 01/04/20 15:40 Freq: Status: Active Protocol: Document 01/04/20 15:40 BF (Rec: 01/04/20 15:41 BF [id number]) Discharge Planning Assessment Assigned Interactive Developer ENEIDA Edmond DPOA/Assigned Designee Name informally spouse Advance Directives? No Advance Directives on File No History Provided By Patient,Medical Record Has Patient been admitted in last 30 No days? Prior Living Arrangements House Household Members spouse Type of transporation used prior to Drives own vehicle admit Independent with ADL's Yes Is patient alert and oriented? Yes Caregiver for Another No Patient/Family Preference Home with Home Health Barriers to Discharge No Discharge Plan Home Transportation Arrangement Spouse bedside and available for transport if safe for home Referrals Initiated None needed Additional Comment Rule out HH Review Status In Process Please Provide Date Initial DC 01/04/20 Assessment Was Performed Next Review Type Continued Stay Review
[2020-01-04] MEDS: EZETIMIBE 10 MG TABLET PO (20:23)
[2020-01-04] MEDS: SODIUM CHLORIDE 0.9% FLUSH 10 ML IV (20:23)
[2020-01-04] MEDS: ROSUVASTATIN 10 MG TABLET 40 MG PO (20:23)
--- NOTE | 2020-01-04 23:18 | PC.NURSE ---
pt tolerated her clear liquid diet. she has been drinking lots of water. no n/v. no pain. independent in her room. liquid stool total 800cc.
[2020-01-05] VITALS: O2SAT 98
[2020-01-05 04:00] VITALS: O2SAT 99
[2020-01-05 05:52] VITALS: BP 117/75; PULSE 84; RESP 18; TEMP 36.7; O2SAT 93
--- NOTE | 2020-01-05 06:05 | PC.NURSE ---
Pt doing well. No complaints, no pain or nausea, 1 episode of mixed diarrhea and urine, small amount.
[2020-01-05 08:08] VITALS: BP 117/75
[2020-01-05] MEDS: METOPROLOL IR 50 MG TABLET PO (08:08)
[2020-01-05] MEDS: lisinopriL 10 MG TABLET PO (08:08)
[2020-01-05] MEDS: SODIUM CHLORIDE 0.9% FLUSH 10 ML IV (08:09)
[2020-01-05 08:15] VITALS: BP 135/87; PULSE 89; RESP 16; TEMP 37; O2SAT 96
--- NOTE | 2020-01-05 10:15 | PC.NURSE ---
Pt is dressed and ready for discharge home with Spouse. Went over d/c instructions with Pt and Spouse-discussed d/c meds, time of last dose, reviewed Pt portal and stroke education. Pt to follow up with her PCP as needed.
--- NOTE | 2020-01-05 11:31 | CM.DANOTE ---
DCP: continued: case received and discussed in Team Rounds. EMR now reviewed. Note that pt did d/c to home setting about 1000, as per plan, and before the Rounding process was completed. No d/c needs were identified by the care team members.
--- NOTE | 2020-01-05 13:12 | PM.DS.1 ---
History of Present Illness History of Present Illness Chief complaint: stomach pain, throwing up Narrative: The patient is a woman who developed pain across her upper abdomen yesterday afternoon. It was accompanied by persistent nausea and vomiting all night long. She had a normal bowel movement this morning. She has had problems with eating and with her abdomen in the past but nothing this severe. She feels bloated a fair amount of time. She feels the best early bloated right now. Her pain is mostly at this time in the left abdomen. She has had a hysterectomy in the past but no other abdominal operations. That was done for a benign tumor. Discharge Providers Provider Date of admission: 01/03/20 15:29 Discharge Date: 01/05/20 Primary care physician: Antonio Crawley MD Consults: 01/03/20 16:34 Consult to Discharge Planning Routine Comment: Discharge provider: Zelalem Vaughn MD Summary Hospital Course Discharge Diagnosis: Acute Abdominal pain with partial small bowel obstruction resolved at discharge Elevated cholesterol treated with medication. Chronic condition Chronic hypertension Coronary artery disease post stenting chronic History of myocardial infarction (2 of them) Hospital Course: The patient was admitted for observation. She was resuscitated with IV fluids and kept NPO initially. Small-bowel follow-through was performed the morning following her admission. There was rapid transit through a normal appearing small bowel. The patient was begun on a diet and advanced. She had return of bowel function with normal bowel movements once the contrast had gone through her. She was discharged to follow up with her primary care provider if necessary. Status at Discharge Cognitive/behavioral status at discharge: oriented Functional status at discharge: independent ambulation Overall status at discharge: patient is back to baseline Time Spent with Patient Time spent: Less than 30 minutes Exam Vital Signs (past 8 hours): - 01/05/20 05:52 01/05/20 08:08 01/05/20 08:15 Temperature 98.1 F 98.6 F Pulse Rate 84 89 Respiratory Rate 18 16 Blood Pressure 117/75 117/75 135/87 Pulse Oximetry 93 96 Oxygen Delivery Method Room Air Oxygen Flow Rate 0 Narrative Exam Narrative: Lungs are clear to auscultation no rales or rhonchi. Heart regular rate and rhythm without murmur gallop. Abdomen is protuberant soft. No guarding or tenderness. Objective Labs Result Diagrams: 01/04/20 06:41 01/04/20 06:41 Discharge Plan Discharge Plan Patient Disposition: Home Discharge comment: Your blockage seems to be resolved. Discharge orders & Medications Prescriptions: Continued lisinopril 10 mg Tablet 10 mg PO DAILY RF: 0 metoprolol tartrate 50 mg Tablet 50 mg PO DAILY RF: 0 ezetimibe [Zetia] 10 mg Tablet 10 mg PO DAILY RF: 0 rosuvastatin [Crestor] 40 mg Tablet 40 mg PO DAILY RF: 0 Follow up/Referrals: Antonio Crawley MD [Primary Care Provider] - Diet/Activity/Treatments Diet: Diet as Tolerated Activity: No restriction Skin/Wound/Dressing Care Report to your healthcare provider any signs of infection, such as:: chills, fever and increased pain Visit Report/Discharge Packet Visit Report Forms: Patient Portal/API, Stroke Signs & Symptoms Discharge Data Primary Care Provider: Antonio Crawley Attending Provider: Zelalem Vaughn Admit Date/Time: 01/03/20 15:29 Discharges patient from system. Discharge Date/Time: 01/05/20 10:26 Quality VTE Deep Vein Thrombosis/Pulmonary Embolism Present on Admission: No
--- NOTE | 2020-01-11 17:31 | PC.NURSE ---
Late Entry: Lactate Ringers IV infusion initiated 01/02 at 16:01, complete 01/03 at 00:01.
== END 2020-01-05 10:26 | disposition home or self-care (01) ==
LOC: ED 15:29 → AC 15:30
PROVIDERS: Emergency Medicine; Admitting Provider Specialist; Emergency Provider Nurse Practitioner; PCP Internal Medicine; Referring Provider Nurse Practitioner; Visit Provider Specialist
DX: K56.600 Partial intestinal obstruction, unspecified as to cause (principal); R10.32 Left lower quadrant pain; R11.2 Nausea with vomiting, unspecified; I25.2 Old myocardial infarction; I25.10 Atherosclerotic heart disease of native coronary artery without angina pectoris; E78.00 Pure hypercholesterolemia, unspecified; I10 Essential (primary) hypertension; H93.19 Tinnitus, unspecified ear
CPT/HCPCS: 36415; 74177; 74250; 80048; 80053; 81003; 82550; 83690; 84484; 85025; 85610; 85730; 93005; 96361; 96374; 96375; 99217; 99218; 99224; 99284; G0378; J0780; J1650; J1885; J2405; Q9967